=== PATIENT | female | born 1980 | race Hispanic/Latino ===

== ENCOUNTER → 2022-12-20 | Outpatient (CLI) | payer OTHER | END | disposition home or self-care (01) | LOC: RAH 09:45 | PROVIDERS: ATTEND Nurse Practitioner Family | DX: Z12.31 Encounter for screening mammogram for malignant neoplasm of breast (principal) | CPT/HCPCS: 77067 ==

== ENCOUNTER → 2023-12-22 | Outpatient (CLI) | payer OTHER | END | disposition home or self-care (01) | LOC: RAH 09:32 | PROVIDERS: ATTEND Nurse Practitioner Family | DX: Z12.31 Encounter for screening mammogram for malignant neoplasm of breast (principal) | CPT/HCPCS: 77067 ==

== ENCOUNTER → 2024-06-15 | Outpatient (CLI) | payer OTHER ==
--- NOTE | 2024-06-15 15:46 | HMCIMG ---
US THYROID/NECK HISTORY: Hypothyroidism COMPARISON: None TECHNIQUE: Thyroid ultrasound study was performed. FINDINGS: Thyroid gland has been removed. No residual thyroid tissue seen. 2 lymph nodes are seen in the right neck measuring 5 x 9 x 2 mm and in the left neck measuring 7 x 3 x 5 mm and 5 x 2 x 4 mm each. IMPRESSION: 1. Bilateral cervical lymph nodes with the largest on the left measuring 7 x 3 x 5 mm and on the right measuring 5 x 9 x 2 mm. Postthyroidectomy.
== END | disposition home or self-care (01) ==
LOC: RAH 14:27
PROVIDERS: ATTEND Nurse Practitioner Family
DX: R59.0 Localized enlarged lymph nodes (principal); E89.0 Postprocedural hypothyroidism
CPT/HCPCS: 76536

== ENCOUNTER → 2025-01-01 | Outpatient (CLI) | payer BC, OTHER ==
--- NOTE | 2025-01-02 13:18 | HMCIMG ---
DIGITAL BILATERAL SCREENING MAMMOGRAM WITH TOMOSYNTHESIS Technique: The digital mammographic examination of both breasts in craniocaudal and mediolateral oblique views along with CAD was obtained. Tomosynthesis of both breasts was obtained. History: This is a 44 years year-old female 3, para 2 Ab 1 for 3D screening mammogram. Patient has mother and maternal grandmother with family history of breast cancer. Patient has no complaint Reference:Prior mammogram from 12/22/2023, 12/20/2022, 01/15/2019 are available for comparison. Breast composition: Breast composition C: The breasts are heterogeneously dense, which may obscure small masses. Finding: The digital mammographic examination of both breasts in craniocaudal and mediolateral oblique view along with CAD demonstrates both breasts to be moderately heterogeneously dense due to fibroglandular stromal elements.. There is no evidence of any dendritic mass, cluster microcalcification or architectural distortion. The Tomosynthesis demonstrates no lesion seen. The retromammary fat appears to be normal. IMPRESSION: Unchanged from prior mammography. NO RADIOGRAPHIC EVIDENCE OF MALIGNANT CHANGES. WE WOULD RECOMMEND ANNUAL FOLLOW UP WITH TOMOSYNTHESIS UNLESS OTHERWISE CLINICALLY INDICATED. FINAL ASSESSMENT: ACR: BI-RAD- 2. Benign: Also a negative assessment; finding(s) benign abnormalities. Management: Routine mammography screening. Likelihood of Cancer: Essentially 0% likelihood of malignancy. NOTE: IF A WORK-UP OF THIS PATIENT LEADS TO A BIOPSY, PLEASE FORWARD A COPY OF THE PATHOLOGY REPORT TO OUR OFFICE REQUIRED BY [employer] E[employer] DECEMBER 12, 1993. A NEGATIVE MAMMOGRAM SHOULD NOT PRECLUDE BIOPSY OF A CLINICALLY PALPABLE SUSPICIOUS MASS, 10% OF BREAST CANCERS ARE MAMMOGRAPHICALLY OCCULT. THIS MAMMOGRAPHY FACILITY IS FULLY ACCREDITED BY THE FOOD AND DRUG [employer]MINISTRATION (FDA). THANK YOU FOR THIS REFERRAL.
== END | disposition home or self-care (01) ==
LOC: RAH 09:18
PROVIDERS: ATTEND Nurse Practitioner Family
DX: Z12.31 Encounter for screening mammogram for malignant neoplasm of breast (principal); R92.333 Mammographic heterogeneous density, bilateral breasts
CPT/HCPCS: 77063; 77067